=== PATIENT | male | born 1980 | race Caucasian/White ===

== ENCOUNTER 2020-03-23 07:27 | Outpatient (RCR) | payer BC, SELFPAY | END 2020-04-16 23:59 | disposition home or self-care (01) | LOC: SPT 07:27 | PROVIDERS: PCP Nurse Practitioner Family; Referring Provider Nurse Practitioner Family; Visit Provider Nurse Practitioner Family | DX: M54.89 Other dorsalgia (principal) | CPT/HCPCS: 97110; 97161 ==

== ENCOUNTER 2020-04-17 06:00 | Outpatient (RCR) | payer BC, SELFPAY | END 2020-05-17 23:59 | disposition home or self-care (01) | LOC: SPT 06:00 | PROVIDERS: PCP Nurse Practitioner Family; Referring Provider Nurse Practitioner Family; Visit Provider Nurse Practitioner Family | DX: M54.89 Other dorsalgia (principal) | CPT/HCPCS: 97110 ==

== ENCOUNTER 2021-06-29 09:54 | Emergency (ER) | payer BC, SELFPAY ==
[2021-06-29 10:09] VITALS: BP 123/89; PULSE 106; RESP 17; TEMP 36.8; O2SAT 97; BMI 28.7
--- NOTE | 2021-06-29 10:36 | ED_ITS ---
HPI - Neck Pain/Injury General: Chief Complaint: Neck Pain/Injury Stated Complaint: Upper R shoulder and back pain Time Seen by Provider: 06/29/21 10:23 PFSH ED PFSH: Social History (Updated 05/07/20 @ 10:07 by Junaid Arellano LPN) Smoking and tobacco status: never smoked Alcohol intake: never Course Vital Signs: Vital signs: Vital Signs Temperature 98.3 F 06/29/21 10:09 Pulse Rate 77 06/29/21 12:05 Respiratory Rate 18 06/29/21 12:05 Blood Pressure 130/86 06/29/21 12:05 Pulse Oximetry 97 06/29/21 12:05 Discharge Plan Discharge Patient Disposition: Home Clinical Impression: Strain of right trapezius muscle Qualifiers: Encounter type: initial encounter Qualified Code(s): S46.811A - Strain of other muscles, fascia and tendons at shoulder and upper arm level, right arm, initial encounter Condition: Stable Prescriptions: New methocarbamol 750 mg tablet 1,500 mg PO TID Qty: 30 0RF Changed tramadol 50 mg tablet 50 mg PO Q4H PRN (Reason: pain) Qty: 15 0RF No Action amoxicillin-pot clavulanate 875-125 mg tablet 1 tab PO BID 7 Days Qty: 14 0RF Discharge Orders: Discharge ED (Routine); Ordered 06/29/21 Ordered By: Melly Sanders Referrals: Clemencia Jessica, AGRICULTURAL COMMODITIES INSPECTOR [Primary Care Provider] - Activity Restrictions/Additional Instructions: As we discussed we will place you on steroids as well as give you something for discomfort. We will switch her muscle relaxers as you stated the cyclobenzaprine does not seem to be working well. You may begin your ibuprofen 800 mg tablets you were given tomorrow. Please follow-up with primary care so they may refer you to physical therapy if pain persists. You may continue to use ice/heat as needed. 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
--- NOTE | 2021-06-29 11:07 | ED_ITS ---
HPI - Back Pain/Injury General: Chief Complaint: Neck Pain/Injury Stated Complaint: Upper R shoulder and back pain Time Seen by Provider: 06/29/21 10:23 Source: patient Mode of arrival: ambulatory Limitations: no limitations History of Present Illness: Patient is a 41-year-old male who presents to ED today along with his for concerns of right-sided neck and back pain that he states has been present over the past 3 to 4 days. Patient tells me about 2 years ago he had something similar that was treated by PCP and physical therapy which helped. He has had a few exacerbations of similar pains over that time period that were alleviated with conservative treatments at home. Patient states the other day he was rolling over in bed and immediately felt something pull to that area and states his pain since then has been severe. He states pain sometimes will radiate down into his right lower extremity. He is not complaining of numbness, tingling, loss of sensation. He has not noticed any c olor or temperature changes. Pain seems to be worse with certain movements of his neck. He has been treating with ice and heat and states this does alleviate his discomfort but pain immediately returns after he discontinues these. He was seen by PCP yesterday and given IM Toradol and 800mg Ibuprofen as well as Flexeril. He states the Flexeril does not seem to be helping. He was given directions to not start the ibuprofen until tomorrow secondary to the IM Toradol. MD elicited complaint: back pain and other (neck pain) Onset (ago): day(s) Timing: constant Severity: severe Pain scale (0-10): 9 Quality: burning and sharp Location: right upper back Exacerbating factors: movement Relieving factors: other (certain positions) Associated symptoms: Deny chills, fatigue or fever(s) Treatments prior to arrival: cold therapy, heat therapy and other (toradol, flexeril) Work related injury: No Review of Systems Const: Denies: fever(s), chills, body aches, fatigue or malaise Card: Denies: chest pain Resp: Denies: dyspnea Musc: Reports: neck pain and back pain; Denies: extremity pain, extremity swelling, joint pain, joint swelling, joint redness, joint warmth, joint stiffness, limited range of motion, muscle cramps, muscle weakness or decrease in muscle mass Skin/Breast: Denies: rash or changes in skin color Neuro: Denies: numbness in extremities, weakness in extremities or sensory changes PFSH ED PFSH: Social History (Updated 05/07/20 @ 10:07 by Junaid Arellano LPN) Smoking and tobacco status: never smoked Alcohol intake: never Physical Exam Const: COMMON NORMALS: no acute distress, average body habitus, patient oriented x3, no limitations, healthy appearing, alert and well nourished GENERAL APPEARANCE: cooperative HENMT: COMMON NORMALS: normocephalic and atraumatic HEAD & SCALP: normal to inspection, normocephalic and atraumatic Neck/C-Spine: COMMON NORMALS: no lymphadenopathy and no meningeal signs GENERAL: Yes normal visual inspection CERVICAL SPINE: Yes pain with cervical ROM, No Cervical spine tenderness, No step off deformity, Yes Paracervical muscle tenderness and Yes Trapezius muscle tenderness Chest: COMMONS NORMALS: normal inspection of the chest and normal palpation of entire chest wall Resp: COMMON NORMALS: normal respiratory effort and clear to auscultation bilaterally AUSCULTATION: clear to auscultation bilaterally Cardio: COMMON NORMALS: regular rate and regular rhythm RATE: regular rate RHYTHM: regular rhythm Back/Pelvis: BACK IMAGE (MALE): 1. TTP starting at R cervical paraspinal musculature extending distally through upper thoracic R paraspinal muscles and over scapula Extremity: COMMON NORMALS: normal to inspection, full ROM, capillary refill normal, no joint enlargement and no clubbing, cyanosis or edema GENERAL: Yes normal exam except as noted Neuro: COMMON NORMALS: patient oriented x3, moves all extremities, no focal motor deficits and no sensory deficits noted SENSORIUM/ORIENTATION: Yes alert MENINGEAL SIGNS: Yes no meningeal signs MOTOR EXAM: 5/5 motor strength present throughout Skin: COMMON NORMALS: no rashes or lesions noted GENERAL SKIN EXAM: no rashes or lesions noted Course Vital Signs: Vital signs: Vital Signs Temperature 98.3 F 06/29/21 10:09 Pulse Rate 77 06/29/21 12:05 Respiratory Rate 18 06/29/21 12:05 Blood Pressure 130/86 06/29/21 12:05 Pulse Oximetry 97 06/29/21 12:05 MDM - Back Pain/Injury Medical Decision Making Patient has pain and tenderness to palpation starting at the right cervical paraspinal musculature extending downward over his trapezius muscle. Patient states he was also given a trigger point injection through PCP yesterday without much relief. Patient arrives complaining of pain at 9/10. Driving medications here he is now stating his pain is 3/10. We will place him on a different muscle relaxer to see if this gives him any more relief. We will also place him on steroids. He may begin the 800mg Ibuprofen. Will do short amount of pain meds as he was complaining of significant discomfort at home. Recommend follow- up with PCP this week so they can refer back to PT if symptoms do not improve as this is helped him previously. Discharge Plan Discharge Patient Disposition: Home Clinical Impression: Strain of right trapezius muscle Qualifiers: Encounter type: initial encounter Qualified Code(s): S46.811A - Strain of other muscles, fascia and tendons at shoulder and upper arm level, right arm, initial encounter Condition: Stable Prescriptions: New prednisone 10 mg tablet 60 mg PO DAILY 5 Days Qty: 30 0RF methocarbamol 750 mg tablet 1,500 mg PO TID Qty: 30 0RF Changed tramadol 50 mg tablet 50 mg PO Q4H PRN (Reason: pain) Qty: 15 0RF No Action amoxicillin-pot clavulanate 875-125 mg tablet 1 tab PO BID 7 Days Qty: 14 0RF Discharge Orders: Discharge ED (Routine); Ordered 06/29/21 Ordered By: Melly Sanders Referrals: Clemencia Jessica, DIE CAST OPERATOR [Primary Care Provider] - Activity Restrictions/Additional Instructions: As we discussed we will place you on steroids as well as give you something for discomfort. We will switch her muscle relaxers as you stated the cyclobenzaprine does not seem to be working well. You may begin your ibuprofen 800 mg tablets you were given tomorrow. Please follow-up with primary care so they may refer you to physical therapy if pain persists. You may continue to use ice/heat as needed. 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
[2021-06-29] MEDS: orphenadrine 30 mg/mL Inj 2 mL 60 MG IM (11:15)
[2021-06-29 11:16] VITALS: RESP 20
[2021-06-29] MEDS: morphine 4 mg/mL SDV 1 mL IM (11:16)
[2021-06-29] MEDS: dexamethasone 10 mg/mL INJ 8 MG IM (11:16)
--- NOTE | 2021-06-29 11:35 | PC.NURSE ---
PT states he is beginning to feel some relief from the medication that were given. Will continue to reassess.
[2021-06-29 12:05] VITALS: BP 130/86; PULSE 77; RESP 18; O2SAT 97
== END 2021-06-29 12:14 | disposition home or self-care (01) ==
PROVIDERS: Emergency Provider Physician Assistant; PCP Nurse Practitioner Family
DX: S46.811A Strain of other muscles, fascia and tendons at shoulder and upper arm level, right arm, initial encounter (principal); X50.9XXA Other and unspecified overexertion or strenuous movements or postures, initial encounter
CPT/HCPCS: 96372; 99283; J1100; J2270; J2360